=== PATIENT | female | born 1990 | race Caucasian/White ===

== ENCOUNTER 2017-06-01 15:43 | Emergency (ER) | payer MEDICAID ==
[~2017-06-01] VITALS: Ht 180.3 cm; Wt 88.5 kg
[2017-06-01 15:45] VITALS: BP_SYST 133
[2017-06-01 18:22] VITALS: BP_SYST 125
== END 2017-06-01 18:21 | disposition home or self-care (01) ==
LOC: SED 15:43
DX: N64.9 Disorder of breast, unspecified (principal)
CPT/HCPCS: 99281